=== PATIENT | female | born 1955 | race Two or more races ===

== ENCOUNTER 2024-09-20 16:00 | Emergency (ER) | payer OTHER ==
[~2024-09-20] VITALS: Ht 152.4 cm; Wt 55.3 kg
[2024-09-20] MEDS ORDERED: LEVOTHYROXINE25 MCG PO (16:08)
[2024-09-20] MEDS ORDERED: ATORVASTATIN CA10 MG PO (16:08)
[2024-09-20] MEDS ORDERED: CRESTOR40 MG PO (16:08)
[2024-09-20] MEDS ORDERED: VAZALORE81 MG PO (16:09)
[2024-09-20] MEDS ORDERED: FAMOTIDINE/PF 20 MG/2 ML VIAL ONE (19:11)
[2024-09-20] MEDS ORDERED: ONDANSETRON HCL 2 MG/ML VIAL ONE (19:11)
[2024-09-20] MEDS ORDERED: ONDANSETRON HCL 2 MG/ML VIAL IV ONE (19:15)
[2024-09-20] MEDS ORDERED: FAMOTIDINE/PF 20 MG/2 ML VIAL IV ONE (19:15)
[2024-09-20 19:26] LABS: HEMOGLOBIN 12.9 g/dL (12.0-15.00); MEAN CELL VOLUME 85.4 fL (80.00-100.00); MEAN CORPUSCULAR HEMOGLOBIN 28.3 pg (27.00-32.0); MEAN CORPUSCULAR HGB CONC 33.1 g/dl (32.0-36.0); PLATELET COUNT 220 K/uL (150-450); RED BLOOD COUNT 4.57 M/uL (4.00-6.00); RED CELL DISTRIBUTION WIDTH 14.2 % (11.5-14.5)
[2024-09-20 20:02] LABS: BILIRUBIN TOTAL 1.01 mg/dL (0.3-1.2); CALCIUM 9.7 mg/dL (8.5-10.1); CREATININE SERUM 0.73 mg/dL (0.55-1.02); GFR 79.05; GLOBULINA 3.9 G/DL (2.4-3.5); POTASSIUM 4.23 mEq/L (3.5-5.1); TOTAL PROTEIN 7.9 gm/dL (6.4-8.2)
[2024-09-20] MEDS ORDERED: ONDANSETRON ODT4 MG PO (21:14)
[2024-09-20] MEDS ORDERED: PEPCID AC20 MG PO (21:30)
== END 2024-09-20 21:52 ==
LOC: ER 16:01
PROVIDERS: Preventive Medicine Public Health & General Preventive Medicine
DX: D13.5 Benign neoplasm of extrahepatic bile ducts (principal); R11.0 Nausea; R10.9 Unspecified abdominal pain; I10 Essential (primary) hypertension; E03.8 Other specified hypothyroidism
CPT/HCPCS: 36415; 96365; 99282; J2405; J3490

== ENCOUNTER → 2024-10-04 | Outpatient (CLI) | payer OTHER ==
[~2024-10-04] MED LIST: ATORVASTATIN CA10 MG PO; CRESTOR40 MG PO; LEVOTHYROXINE25 MCG PO; ONDANSETRON ODT4 MG PO; PEPCID AC20 MG PO; VAZALORE81 MG PO
== END | disposition home or self-care (01) ==
LOC: TOM 08:52
DX: R10.84 Generalized abdominal pain (principal)
CPT/HCPCS: 74178; Q9965